=== PATIENT | female | born 1950 | race African-American/Black ===

== ENCOUNTER 2018-12-03 09:03 | Outpatient (CLI) | payer MEDICARE, MEDICAID ==
--- NOTE | 2018-12-06 09:38 | RAD ---
XR Ba Swallow W/Speech Therap History: [Dysphagia, unspecified R13.10. Feeding difficulties R63.3.] Comparison: None. Findings: Multiple consistency of contrast was given to the patient via the speech pathologist. The r adiologist was not present. Impression: Fluoroscopy for the speech pathologist. Please see the report for details of the exam.
== END 2018-12-03 09:04 | disposition home or self-care (01) ==
PROVIDERS: ATTEND Family Medicine
DX: R13.10 Dysphagia, unspecified (principal); R63.3 Feeding difficulties
CPT/HCPCS: 74230

== ENCOUNTER 2019-11-03 13:46 | Observation (INO) | payer MEDICARE, MEDICAID ==
--- NOTE | 2019-11-03 14:33 | PDOC.FPRHP ---
- History of Present Illness Chief Complaint: face numbess, R hand weakness History of Present Illness: This patient is a 68-yo F who presents as transfer from [place] ED for TIA vs CVA rule out. Patient reports symptoms of R facial numbness, R hand numbness, and R hand weakness/clumsiness/dropping objects starting yesterday morning. These symptoms improved. She then felt lightheaded and dizzy, as if she were going to pass out later that evening. Denies the feeling of the room spinning around her. She again noted similar symptoms of lightheadedness and R hand weakness this morning, so she presented to ED. Had headache earlier today which resolved w/ aspirin. Takes aspirin 81 at home daily. Hx of TIA in the past. Denies cardiac history. ED Course: In [place] received aspirin. CT of head negative for acute bleed. - Allergies/Adverse Reactions Allergies Allergy/AdvReac Type Severity Reaction Status Date / Time acetaminophen [From Tylenol] Allergy Rash Verified 11/03/19 16:45 codeine Allergy Rash Verified 11/03/19 16:45 meperidine [From Demerol] Allergy Rash Verified 11/03/19 16:45 - Home Medications Medication Instructions Recorded Confirmed Type Aspirin [Ecotrin Low Strength] 81 mg PO DAILY 11/03/19 11/03/19 History Atorvastatin Calcium 40 mg PO DAILY 11/03/19 11/03/19 History Candesartan Cilexetil 16 mg PO DAILY 11/03/19 11/03/19 History Famotidine 20 mg PO DAILY 11/03/19 11/03/19 History Hydrochlorothiazide 25 mg PO DAILY 11/03/19 11/03/19 History Metoprolol Tartrate [Lopressor] 25 mg PO BID 11/03/19 11/03/19 History Pantoprazole Sodium 40 mg PO BID 11/03/19 11/03/19 History - History PMHx: HTN, Hx of TIA, GERD, HLD PSHx: , HYSTERECTOMY, LEFT KNEE REPLACEMENT FHx: - Father: of [place] age 80 - Denies FHx of sudden head bleeds, sudden . Social: - Denies smoking, drinking alcohol, drugs. - Review of Systems General: denies: fever/chills Eyes: denies: vision changes ENT: denies: nasal congestion Respiratory: denies: cough, shortness of breath Cardiovascular: denies: chest pain, palpitation, edema Gastrointestinal: reports: nausea. denies: vomiting, diarrhea, abdominal pain Genitourinary: denies: dysuria Skin: denies: rashes Musculoskeletal: denies: swelling Neurological: reports: weakness. denies: syncope, seizure Psychological: denies: anxiety, depression - Vital signs BP: 146/61, MAP: 86, Pulse: 57, Resp: 17, Temp: 98.4 (Oral), Pain: 0, O2 sat: 97 on (Room Air), Time: 11/03/2019 13:54. Weight: 100 kg - Physical Exam Constitutional: NAD, awake, alert and oriented HEENT: normocephalic and atraumatic, PERRLA, EOMI, conjunctiva clear, no scleral icterus, grossly normal vision, grossly normal hearing, normal nasal mucosa, MMM, oropharynx clear Neck: supple, trachea midline, no LAD Heart: RRR, normal S1/S2, no murmurs/rubs/gallops Lungs: CTAB, no respiratory distress Abdomen: soft, non-tender, bowel sounds present Musculoskeletal: normal structure, normal tone, ROM grossly normal Neurological: no focal deficit, CN II-XII intact -Neurological: Cranial nerves intact EXCEPT for persistent numbness over V2-V3 over Left face HINTs exam negative for signs of posterior stroke. Skin: no rash/lesions, no jaundice Heme/Lymphatic: no unusual bruising or bleeding, no petechia Psychiatric: normal mood and affect, good judgment and insight, intact recent and remote memory FMR H&P: Results - EKG Interpretation EKG: NSR FMR H&P: A/P - Problem List (1) TIA (transient ischemic attack) Current Visit: Yes Status: Acute Code(s): G45.9 - TRANSIENT CEREBRAL ISCHEMIC ATTACK, UNSPECIFIED (2) HTN (hypertension) Current Visit: Yes Status: Acute Code(s): I10 - ESSENTIAL (PRIMARY) HYPERTENSION - Plan TIA - improved w/ minimal L facial numbness which spares forehead - MRI in AM - TSH, FLP, Magnesium, Phosphorus, A1C in the AM - pending MRI results, may consider further imaging of carotid arteries by sono , CT or MRI. - Aspirin 325 in AM - statin this evening HTN - allow permissive HTN for 24 hours up to 220/110 - continue anti-HTN medications after this window. GERD - continue symptomatic treatment Code: Full Fluids: oral VTE ppx: LVX GI ppx: none Disposition/LOS: stroke obs. LOS < 48H pending imaging results. FMR H&P: Upper Level - Plan Date/Time: 11/03/19 1433 IAlexander DO, have evaluated this patient and agree with findings/plan as outlined by sports broadcasting internship resident. Pertinent changes/additions are listed here. HPI Ms. Baker is a 68 yo F w/ a pmhx sig for htn presenting to outside ED for disequilibrium and sensory changes She reports yesterday while standing the room began spinning, she also began dropping things and having a numb sensation on her left side. Both of which resolved and then returned this morning and since have completely resolved. She has not had anything like this before and currently denies dizziness, presyncope , weakness, or sensory changes. No recent illness, taking meds as prescribed. PE General: NAD HEENT: NCAT Chest: even inspiratory and expiratory effort, no retractions Abdomen: non distended, NTTP MSK: no weakness, or loss of ROM noted Extremities: non-edematous, pulses present Neuro: CN II-XII intact, strength 5/5, sensory abnormality localized to L face, sparing forehead See sports broadcasting internship portion for full ROS, PE, labs and vitals. A/P TIA - CT brain at outside ED neg for bleed, EKG wnl - risk stratification, MRI, Echo - increase asa dose - npo pending BSS - appropriate consults pending further imaging results see sports broadcasting internship note for mgmt of chronic disease Dispo: admit to stroke for further eval of TIA Addendum - Attending - Attending Attestation Date/Time: 11/03/19 1640 I personally evaluated the patient and discussed the management with Dr. Morel /Ronald. I agree with the History, Examination, Assessment and Plan documented above with any addition or exceptions noted below. Patient with history of previous TIA here with acute focal neurological complaints that resolved yesterday but recurred this morning. She is currently back to baseline. Exam is overall normal. Patient will be placed on stroke obs, obtain MRI, escalate ASA therapy, therapy services, and risk stratify. Further mgmt pending MRI result.
[2019-11-03] MEDS ORDERED: Ondansetron PF 4 MG/2 ML Vial IVP PRN (15:04)
[2019-11-03] MEDS ORDERED: Acetaminophen 325 MG TAB PO PRN ×2 (15:04→18:05)
[2019-11-03] MEDS ORDERED: Ondansetron ODT 4 MG TAB PO PRN (15:04)
[2019-11-03] MEDS ORDERED: Labetalol HCl 100 MG/20 ML VIAL SLOW IVP PRN (15:04)
[2019-11-03] MEDS ORDERED: Enoxaparin Sodium 40 MG/0.4 ML SYRINGE SC SCH (15:30)
[2019-11-03] MEDS ORDERED: Potassium Chloride 20 MEQ TAB PO SCH (15:45)
[2019-11-03 16:30] LABS: PTT 30.3 SEC (22.9-36.1); Prothrombin Time 12.9 SEC (12.0-14.7)
[2019-11-03 16:31] VITALS: BMI 39.2
[2019-11-03] MEDS ORDERED: Famotidine 20 MG TAB PO SCH (21:00)
[2019-11-03] MEDS ORDERED: FLU VACC TS2019-20(65YR UP)/PF 180 MCG/0.5 ML SYRINGE IM ONE (21:00)
[2019-11-03] MEDS ORDERED: Atorvastatin Calcium 40 MG TAB PO SCH (21:00)
[2019-11-04 04:51] LABS: #Basophils 0.1 thou/uL (0.0-0.2); #Eosinphils 0.3 thou/uL (0.0-0.7); #Lymphocytes 2.4 thou/uL (1.20-3.40); #Monocytes 0.6 thou/uL (0.11-0.59); #Neutrophils 5.7 thou/uL (1.40-6.50); %Basophils 0.5 % (0.0-1.0); %Eosinophils 3.2 % (0.0-10.0); %Lymphocytes 26.6 % (21.0-51.0); %Monocytes 6.7 % (0.0-10.0); Mean Corpuscular HGB CONC 33.8 g/dL (32.0-36.0); Mean Corpuscular Hemoglobin 29.3 pg (27.0-31.0); Mean Corpuscular Volume 86.8 fL (78.0-98.0); Mean Platelet Volume 10.3 fL (7.4-10.4); Platelet Count 200 thou/uL (130-400); RBC Distribution Width 19.4 % (11.5-14.5); Red Blood Cell (RBC) Count 3.74 mill/uL (4.20-5.40); White Blood Cell (WBC) Count 9.1 thou/uL (4.8-10.8)
[2019-11-04 04:57] LABS: Hemoglobin A1c 5.7 % (4.0-6.0)
[2019-11-04 05:11] LABS: Anion Gap 10 mmol/L (10-20); BUN (Urea Nitrogen) 13 mg/dL (9.8-20.1); Calc. Creatinine Clearance 105 mL/min (70-130); Calcium 9.1 mg/dL (7.8-10.44); Carbon Dioxide 29 mmol/L (23-31); Cardiac Risk 2.5 (Less than 4.5); Chloride 103 mmol/L (98-107); Cholesterol 76 mg/dl (< 200 Desired); Estimated GFR-MDRD 84; Glucose 123 mg/dL (80-115); HDL Cholesterol 30 mg/dL (>60 Neg Risk); LDL Cholesterol, Calculated 31 mg/dL; Magnesium 1.7 mg/dL (1.6-2.6); Phosphorus 3.2 mg/dL (2.3-4.7); Potassium 3.4 mmol/L (3.5-5.1); Sodium 139 mmol/L (136-145); Triglycerides 76 mg/dL (Less than 150)
--- NOTE | 2019-11-04 05:33 | PDOC.FM ---
- Subjective Subjective: Pt states her dizziness has completely resolved, denies dizziness upon standing or with movement. Has tolerated walking to the bathroom several times overnight. Denies any further numbness or weakness. Tele monitoring: sinus jailyn, [address] depressions 50-60 rate. - Objective MAR Reviewed: Yes Vital Signs & Weight: Vital Signs (12 hours) Temp Pulse Resp BP Pulse Ox 11/04/19 03:45 98.1 F 67 18 128/44 L 97 11/03/19 23:35 98 F 60 18 114/53 L 98 11/03/19 19:58 98 F 56 L 18 127/58 L 98 11/03/19 19:55 98 F 56 L 18 127/58 L 98 Weight Weight 100.244 kg Result Diagrams: 11/04/19 04:25 11/04/19 04:25 Phys Exam - Physical Examination Constitutional: NAD HEENT: moist MMs, sclera anicteric Neck: no nodes, no JVD Respiratory: no wheezing, no rales, no rhonchi, clear to auscultation bilateral Cardiovascular: RRR, no significant murmur, no rub Gastrointestinal: soft, non-tender, positive bowel sounds Musculoskeletal: no edema, pulses present Neurological: non-focal, normal sensation, moves all 4 limbs CN II-VII intact Psychiatric: normal affect, A&O x 3 Skin: no rash, normal turgor, cap refill <2 seconds Dx/Plan (1) HTN (hypertension) Code(s): I10 - ESSENTIAL (PRIMARY) HYPERTENSION Status: Acute (2) TIA (transient ischemic attack) Code(s): G45.9 - TRANSIENT CEREBRAL ISCHEMIC ATTACK, UNSPECIFIED Status: Acute - Plan Plan: TIA - improved w/ no residual dizziness or weakness/sensation loss. - MRI pending this morning - TSH 1.28, FLP within normal limits, Magnesium 1.7, Phosphorus 3.2, A1C 5.7% - pending MRI results, may consider further imaging of carotid arteries by sono , CT or MRI. - Aspirin 325 mg daily - statin daily HTN - allow permissive HTN 48 hr, Pt's BP have been lower, but stable overnight. - continue anti-HTN medications after this window GERD - continue symptomatic treatment Code: Full Fluids: oral VTE ppx: LVX GI ppx: none Disposition/LOS: stroke obs. LOS < 48H pending imaging results. Addendum - Attending - Attending Attestation Date/Time: 11/04/19 8106 I personally evaluated the patient and discussed the management with Dr. Luke. I agree with the History, Examination, Assessment and Plan documented above with any addition or exceptions noted below. Patient back to baseline. She will have MRI today and d/c if normal.
[2019-11-04] MEDS ORDERED: Potassium Chloride 20 MEQ TAB PO SCH ×2 (05:45→09:00)
[2019-11-04] MEDS ORDERED: Magnesium Oxide 400 MG TAB PO SCH (09:00)
[2019-11-04] MEDS ORDERED: Clopidogrel Bisulfate 75 MG TAB PO SCH (09:00)
[2019-11-04] MEDS ORDERED: Famotidine 20 MG TAB PO SCH (09:00)
[2019-11-04] MEDS ORDERED: Aspirin 325 mg Enteric Coated Tablet PO SCH (09:00)
[2019-11-04] MEDS ORDERED: Enoxaparin Sodium 40 MG/0.4 ML SYRINGE SC SCH (09:00)
--- NOTE | 2019-11-04 09:38 | MRI ---
BRAIN MRI WITHOUT CONTRAST: HISTORY: Transient ischemic attack. COMPARISON: None. FINDINGS: No hemorrhage on the axial gradient echo sequence. Calvarium has a normal T1 marrow signal intensity. Midline brain parenchymal structures are unremark able. No parenchymal mass, mass effect, or midline shift. Tigre volume, age appropriate. Cortical chavez-white matter differentiation is preserved. No hydrocephalus. Central arterial flow voids are maintained. Absent restricted diffusion. Adequate aeration of the paranasal sinuses and mastoid air cells. T2 and FLAIR white matter hyperintensities, predominantly periventricular distribution, are nonspecif ic. IMPRESSION: 1. No evidence of restricted diffusion or infarct. 2. White matter T2 and FLAIR hyperintensities are nonspecific but may be due to chronic small-vessel ischemic changes of the white matter. Some of these white matter hyperintensities have a somewhat p erpendicular distribution with respect to the ventricular system. Correlate for demyelinating diseas e such as multiple sclerosis. POS: [facility]
--- NOTE | 2019-11-04 09:55 | ULT ---
US Carotid Doppler STANDARD History: Transient ischemic attack Comparison: None. Findings: Real-time grayscale, color, and spectral analysis of the extracranial carotid and vertebral arteries was performed. No elevated peak systolic velocities within the internal carotid arteries. Antegrade flow both verteb ral arteries. Minimal atherosclerotic plaque. Impression: No hemodynamically significant stenosis.
[2019-11-04 11:41] VITALS: BP 136/57; TEMP 98
--- NOTE | 2019-11-04 15:10 | DIS ---
DATE OF ADMISSION: 11/03/2019 DATE OF DISCHARGE: 11/04/2019 ADMITTING ATTENDING: Edwar Ramirez MD DISCHARGE ATTENDING: Edwar aRmirez MD CONSULTS: None. PROCEDURES: MRI brain, which showed T2 white matter in FLAIR hyperintensities along the ventricles, which were nonspecific or suggestive of chronic ischemic white matter changes. Also showed no acute ischemia or infarcts. Carotid Dopplers bilaterally showed no hemodynamic significant stenosis. Echocardiogram, which result is tending. DIAGNOSES: 1. Transient ischemic attack. 2. Hypertension. 3. Gastroesophageal reflux disease. DISCHARGE MEDICATIONS: 1. Plavix 75 mg p.o. daily for 90 days. 2. Atorvastatin 40 mg p.o. daily. 3. Pantoprazole 40 mg p.o. b.i.d. 4. Candesartan 16 mg p.o. daily. 5. Hydrochlorothiazide 25 mg p.o. daily. 6. Metoprolol 25 mg p.o. b.i.d. DISCONTINUED MEDICATIONS: Aspirin 81 mg daily. HISTORY OF PRESENT ILLNESS/HOSPITAL COURSE: Ms. Baker is a 68-year-old female with a history of hypertension and GERD, coming into the emergency department because of right-sided weakness and numbness to the right upper extremity, also left-sided facial paresthesias as well as dizziness. The patient was given aspirin and statin in the emergency department. Her CT head showed no acute finding. A1c was 5.7. Fasting lipid panel; triglycerides 76, LDL 31, HDL 30, and total cholesterol 76. TSH 1.28. The patient's magnesium and phosphorus were 1.7 and 3.2, magnesium was replaced. Potassium was slightly low at 3.4, which was also replaced. The patient's blood pressure medications were held to allow for permissive hypertension, although the patient's blood pressure remained stable and not elevated during her hospital stay. I monitored here all her blood pressure medications. The patient had a carotid Doppler, which showed no significant hemodynamic stenosis and an MRI, which showed T2 white matter FLAIR hyperintensities along with ventricles either suggestive of MS or more than likely chronic ischemic white matter changes due to small vessel ischemia as the patient did not present clinically in MS. ABCD2 score of 5 and the patient was started on Plavix monotherapy for 90 days. The patient's aspirin was discontinued. DISPOSITION: Stable upon discharge with symptoms completely resolved. No dizziness, weakness, or paresthesias. DISCHARGE INSTRUCTIONS: 1. Location: To home. 2. Diet: Heart healthy. 3. Activity: As tolerated. 4. Followup: Follow up with primary care physician, Dr. Dunlap at [facility] in 1 weeks time. At this visit, please discuss future referral to Neurology due to MRI changes. Job ID: [id number]
[2019-11-04] MEDS ORDERED: Atorvastatin Calcium 40 MG TAB PO SCH (21:00)
== END 2019-11-04 14:41 | disposition home or self-care (01) ==
LOC: ERS 13:46 → 2SE 14:25
PROVIDERS: ADMIT Student in an Organized Health Care Education/Training Program; ATTEND Student in an Organized Health Care Education/Training Program
DX: G45.9 Transient cerebral ischemic attack, unspecified (principal); I10 Essential (primary) hypertension; K21.9 Gastro-esophageal reflux disease without esophagitis; E78.5 Hyperlipidemia, unspecified; Z79.02 Long term (current) use of antithrombotics/antiplatelets; Z79.899 Other long term (current) drug therapy; Z79.82 Long term (current) use of aspirin; Z88.5 Allergy status to narcotic agent
CPT/HCPCS: 70551; 80048; 80061; 83036; 83735; 84100; 84443; 85025; 85610; 85730; 93306; 93880; 96372; 99285; G0378 ×3; 36415; J1650

== ENCOUNTER 2020-01-28 11:44 | Outpatient (CLI) | payer MEDICARE, OTHER ==
--- NOTE | 2020-02-10 14:23 | MMO ---
Bilateral MAMMO Bilat Screen [facility]. CLINICAL HISTORY: Patient is 69 years old and is seen for screening. The patient has no family history of breast cancer. The patient has no personal history of cancer. VIEWS: The views performed were: bilateral craniocaudal with tomosynthesis and bilateral mediolateral oblique with tomosynthesis. FILMS COMPARED: The present examination has been compared to prior imaging studies performed at [facility] on 05/11/2015, 05/13/2016, 07/12/2017 and 09/06/2018. This study has been interpreted with the assistance of computer-aided detection. MAMMOGRAM FINDINGS: The breasts are heterogeneously dense, which could obscure a lesion on mammography. There are stable benign appearing calcifications seen in both breasts. There are also vascular calcifications. There are no suspicious masses, suspicious calcifications, or new areas of architectural distortion. IMPRESSION: THERE IS NO MAMMOGRAPHIC EVIDENCE OF MALIGNANCY. A ROUTINE FOLLOW-UP MAMMOGRAM IN 1 YEAR IS RECOMMENDED. THE RESULTS OF THIS EXAM WERE SENT TO THE PATIENT. ACR BI-RADS Category 2 - Benign finding MAMMOGRAPHY NOTE: 1. A negative mammogram report should not delay a biopsy if a dominant of clinically suspicious mass is present. 2. Approximately 10% to 15% of breast cancers are not detected by mammography. 3. Adenosis and dense breasts may obscure an underlying neoplasm. Reported by: ARTEMIO HUSAIN MD Electonically Signed: [id number]
== END 2020-01-28 11:45 | disposition home or self-care (01) ==
LOC: BICMAMMO 11:44
PROVIDERS: ATTEND Internal Medicine Hospice and Palliative Medicine
DX: Z12.31 Encounter for screening mammogram for malignant neoplasm of breast (principal)
CPT/HCPCS: 77063; 77067

== ENCOUNTER 2020-06-27 20:03 | Observation (INO) | payer MEDICARE, MEDICAID ==
[~2020-06-27 20:03] MED LIST: Iopamidol-370 76% 500 ML 1 ML ONE
--- NOTE | 2020-06-27 20:31 | RAD ---
Chest AP view INDICATION: Shortness of breath and chest pressure COMPARISON: Chest 2 views dated January 22, 2019 FINDINGS: Lungs: The lungs are clear Cardiac silhouette: The cardiomediastinal silhouette appears within normal limits. Pulmonary vasculature: Normal Pleural spaces: No pleural effusion or pneumothorax is demonstrated. Upper abdomen: No abnormality seen. Osseous structures: No acute osseous abnormality. Additional findings: None. IMPRESSION: No acute cardiopulmonary abnormality.
[2020-06-27 20:52] LABS: #Eosinphils 0.2 thou/uL (0.0-0.7); #Lymphocytes 2.4 thou/uL (1.20-3.40); #Monocytes 0.8 thou/uL (0.11-0.59); #Neutrophils 7.8 thou/uL (1.40-6.50); %Basophils 0.4 % (0.0-1.0); %Eosinophils 1.8 % (0.0-10.0); %Lymphocytes 21.7 % (21.0-51.0); %Monocytes 6.7 % (0.0-10.0); %Neutrophils 69.5 % (42.0-75.0); Hemoglobin 12.7 g/dL (12.0-16.0); Mean Corpuscular HGB CONC 32.4 g/dL (32.0-36.0); Mean Corpuscular Hemoglobin 27.7 pg (27.0-31.0); Mean Corpuscular Volume 85.5 fL (78.0-98.0); Mean Platelet Volume 11.8 fL (7.4-10.4); Platelet Count 216 thou/uL (130-400); RBC Distribution Width 19.5 % (11.5-14.5); Red Blood Cell (RBC) Count 4.58 mill/uL (4.20-5.40); White Blood Cell (WBC) Count 11.2 thou/uL (4.8-10.8)
[2020-06-27] MEDS ORDERED: Nitroglycerin 2% Ointment 1 INCH/1 GM Packet ONE (20:56)
[2020-06-27] MEDS ORDERED: Aspirin Chewable 81 MG TAB ONE ×2 (20:56→20:59)
[2020-06-27 21:07] LABS: ALT (SGPT) 31 U/L (8-55); AST (SGOT) 26 U/L (5-34); Albumin 3.7 g/dL (3.4-4.8); Alkaline Phosphatase 108 U/L (40-110); Anion Gap 14 mmol/L (10-20); BUN (Urea Nitrogen) 14 mg/dL (9.8-20.1); Bilirubin, Total 0.4 mg/dL (0.2-1.2); CK (CPK) 97 U/L (29-168); Calc. Creatinine Clearance 0 mL/min (70-130); Calcium 9.2 mg/dL (7.8-10.44); Carbon Dioxide 24 mmol/L (23-31); Chloride 107 mmol/L (98-107); Estimated GFR-MDRD 88; Glucose 93 mg/dL (80-115); Potassium 3.7 mmol/L (3.5-5.1); Protein, Total 7.7 g/dL (6.0-8.3); Sodium 141 mmol/L (136-145)
--- NOTE | 2020-06-27 21:50 | CT ---
CTA Angio Chest W WO Con 06/27/2020 9:30 PM Indication: Shortness of breath Technique: Multiple CTA images were obtained of the thorax with IV contrast. 3-D rendering: MIP didi nstructed images were created and reviewed. Comparison: CTA aortic dissection protocol dated August 19, 2018 Findings: Pulmonary arteries: No central or segmental pulmonary embolus is evident. Heart and Aorta: Normal appearing. Mediastinum:Small hiatal hernia. No definite enlarged lymph nodes. Lungs:Subsegmental volume loss involving both lung bases. Pleural space: Clear. Upper Abdomen: No acute abnormality. Osseous Structures: No acute fracture or subluxation demonstrated. There is scattered degenerative a nd osteoarthritic change present. Soft tissues:No abnormality. Other findings:None. Impression: No central or segmental pulmonary embolus.
--- NOTE | 2020-06-27 22:05 | PDOC.FPRHP ---
- History of Present Illness Chief Complaint: chest pain, SOB History of Present Illness: Reports pressure like chest pain over the last 2 days that has been constant. No radiation. States pain "worse she ever had." 06/06 pain, noting it felt like a pressure- like. States it is not associated with exertion. Reports swelling in her lower extremities. Denies SOB. States when she tried to eat in the ER she felt like the food was stuck in her chest and had pain. Denies fever, chills, VD, cough, congestion. Denies sick contacts. Endorses nausea. Denies changes in smell or taste. Reports she feels her throat is swollen and reports pain. She was started on a new medication for her arthritis called celebrex. She thinks t hat her symptoms started with starting this medication. She has been on this medication for 4 days. She does have diverticulitis, but no known history of PUD. Reports hx of GERD, on PPI for this. States this pain is worse. Nitro in the ER did help the pain. Exertion did not worsen the pain. Reports sweating yesterday. ED Course: Nitro, ASA - Allergies/Adverse Reactions Allergies Allergy/AdvReac Type Severity Reaction Status Date / Time acetaminophen [From Tylenol] Allergy Rash Verified 11/03/19 16:45 codeine Allergy Rash Verified 11/03/19 16:45 meperidine [From Demerol] Allergy Rash Verified 11/03/19 16:45 - Home Medications Medication Instructions Recorded Confirmed Type Atorvastatin Calcium 40 mg PO DAILY 11/03/19 11/03/19 History Candesartan Cilexetil 16 mg PO DAILY 11/03/19 11/03/19 History Hydrochlorothiazide 25 mg PO DAILY 11/03/19 11/03/19 History Metoprolol Tartrate [Lopressor] 25 mg PO BID 11/03/19 11/03/19 History Pantoprazole Sodium 40 mg PO BID 11/03/19 11/03/19 History Clopidogrel Bisulfate [Plavix] 75 mg PO DAILY #90 tab 11/04/19 Rx - History PMHx: HTN, GERD, TIA x 2 last one in 11/14, HLD PSHx: C section, hysterectomy, L knee replacement FHx: noncontributory Social: denies drug, alcohol or tobacco use - Review of Systems General: denies: fever/chills, weight/appetite/sleep changes Eyes: denies: eye pain, vision changes ENT: denies: nasal congestion, rhinorrhea Respiratory: denies: cough, congestion, shortness of breath Cardiovascular: reports: chest pain, edema. denies: palpitation Gastrointestinal: reports: nausea. denies: vomiting, diarrhea, constipation, abdominal pain Genitourinary: denies: incontinence, dysuria Skin: denies: rashes, lesions Musculoskeletal: denies: pain, tenderness Neurological: denies: numbness, syncope, weakness - Vital signs BP: 128/55, Pulse: 70, Resp: 18, Pain: 5, O2 sat: 98 on (Room Air), Time: 06/27/2020 22:08 Weight 100kg BP: 194/71, Pulse: 69, Resp: 20, Temp: 98.1 (Oral), Pain: 10, O2 sat: 98 on (Room Air), Time: 06/27/2020 20:04. - Physical Exam Constitutional: NAD, awake, alert and oriented HEENT: normocephalic and atraumatic, PERRLA, EOMI, MMM Neck: supple, trachea midline Chest: other (TTP of the chest wall) Heart: RRR, normal S1/S2, no murmurs/rubs/gallops, other (+ mild JVD, 1+ pitting edema) Lungs: CTAB, no wheezing Abdomen: soft, non-tender Musculoskeletal: normal structure, normal tone Neurological: no focal deficit Skin: no rash/lesions, good turgor Heme/Lymphatic: no unusual bruising or bleeding, no purpura Psychiatric: normal mood and affect, good judgment and insight, intact recent and remote memory FMR H&P: Results - Labs Result Diagrams: 06/27/20 20:34 06/27/20 20:34 Lab results: WBC 11.2 thou/uL (4.8-10.8) H 06/27/20 20:34 Hgb 12.7 g/dL (12.0-16.0) 06/27/20 20:34 Hct 39.2 % (36.0-47.0) 06/27/20 20:34 MCV 85.5 fL (78.0-98.0) 06/27/20 20:34 Plt Count 216 thou/uL (130-400) 06/27/20 20:34 Neutrophils % 69.5 % (42.0-75.0) 06/27/20 20:34 Sodium 141 mmol/L (136-145) 06/27/20 20:34 Potassium 3.7 mmol/L (3.5-5.1) 06/27/20 20:34 Chloride 107 mmol/L (98-107) 06/27/20 20:34 Carbon Dioxide 24 mmol/L (23-31) 06/27/20 20:34 BUN 14 mg/dL (9.8-20.1) 06/27/20 20:34 Creatinine 0.79 mg/dL (0.6-1.1) 06/27/20 20:34 Glucose 93 mg/dL (80-115) 06/27/20 20:34 Calcium 9.2 mg/dL (7.8-10.44) 06/27/20 20:34 Total Bilirubin 0.4 mg/dL (0.2-1.2) 06/27/20 20:34 AST 26 U/L (5-34) 06/27/20 20:34 ALT 31 U/L (8-55) 06/27/20 20:34 Alkaline Phosphatase 108 U/L (40-110) 06/27/20 20:34 Creatine Kinase 97 U/L (29-168) 06/27/20 20:34 B-Natriuretic Peptide 16.5 pg/mL (0-100) 06/27/20 20:34 Serum Total Protein 7.7 g/dL (6.0-8.3) 06/27/20 20:34 Albumin 3.7 g/dL (3.4-4.8) 06/27/20 20:34 - EKG Interpretation EKG: NSR - Radiology Interpretation CT scan - chest Status: report reviewed by me (No pulmonary embolism) FMR H&P: A/P - Plan Atypical Chest Pain likely 2/2 GERD, r/o ACS Differential includess: dysphagia vs MSK vs peptic ulcer EKG: NSR, Initial trop indetermine DD: 2.45 , CTA chest negative for PE - will trend troponin x 3 - NPO for stress test in the am - aspirin and nitro patch given, improved pain - f/u with minister outpatient - will start famotidine BID - will hold celebrex - consider barium swallow if patient continues to have dysphagia - continue to monitor vitals - monitor on tele HFpEF Echo from October showed normal EF with diastolic dysfunction BNP 16 - consider repeat echo - will give 20mg IV lasix due to LE edema Hx of TIA x 2 (last 09/2019) - sees neurologist - not on anticoagulation HTN - continue home meds Dispo: tele/obs Code: Full MPOA: Son PCP: Juliana Case to be discussed with Dr. Ramirez FMR H&P: Upper Level - Plan Date/Time: 06/27/202204 I, Cathi Angelo MD, have evaluated this patient and agree with findings/plan as outlined by internal medicine nurse practitioner resident. Pertinent changes/additions are listed here. This is a 69yo F here with PMH of HTN, GERD, TIA x 2, HLD who presents with CC of chest pain. She reports the pain has been constant over the last 2 days, pressure-like, non radiating. Pain 10/10 at its worse. Reports increased sweating yesterday. Was relieved with nitro in the ER. Was NOT exacerbated with exertion. Patient was started on celebrex 4 days ago and she believes this was the start of her chest pain. She also endorses LE swelling worse than normal. She denies any abd pain, vomiting diarrhea, fever, chills, urinary complaints. Does report some nausea. Reports decreased appetite. She does have a hx of GERD but she states this pain is worse. When she tried to eat in the ER she reports the feeling of food getting stuck in her chest and reproducible pain. No sick contacts. In the ER, patient was given ASA and nitro. Her VS were stable in the ER. ON exam, she did have 1+ pitting edema in b/l LE, RRR, no murmur, no TTP of chest mild JVD appreciated, lung sounds clear, axox3. Will admit patient to tele, obs for atypical chest pain. Chest pain more likely 2/2 GERD. BNP 16. Will give 20mg IV lasix due to LE edema on exam. Will trend trops. Will make NPO and put in for stress test in the AM. Echo from October 2019 showed normal EF with diastolic dysfunction. Can consider repeat, but unlikley to change over. Can also consider barium swallow if patient continues to have dysphagia. Patient needs to f/u with minister outpatient. Continue pain meds for chronic conditions. Dispo: admit to tele, obs PCP: Juliana Code:FULL Case to be discussed with Dr. Ramirez. See internal medicine nurse practitioner note for full history. Addendum - Attending - Attending Attestation Date/Time: 06/28/20 3315 I personally evaluated the patient and discussed the management with Dr. Smith/Petey. I agree with the History, Examination, Assessment and Plan documented above with any addition or exceptions noted below.
[2020-06-28] LABS: Troponin I 0.014 ng/mL (< 0.028)
[2020-06-28] MEDS ORDERED: Ondansetron PF 4 MG/2 ML Vial IVP PRN (01:15)
[2020-06-28] MEDS ORDERED: Ondansetron ODT 4 MG TAB SL PRN (01:15)
[2020-06-28] MEDS ORDERED: Lactated Ringer's 1,000 ML IV SCH (02:00)
[2020-06-28] MEDS ORDERED: Furosemide 20 MG/2 ML VIAL SLOW IVP SCH (02:00)
[2020-06-28] MEDS ORDERED: Nitroglycerin 0.4 MG TAB (25 Tab Bottle) SL PRN (02:10)
[2020-06-28] MEDS ORDERED: Furosemide 20 MG/2 ML VIAL ONE (02:44)
[2020-06-28 03:41] LABS: Troponin I 0.015 ng/mL (< 0.028)
--- NOTE | 2020-06-28 05:37 | PDOC.FM ---
- Subjective Subjective: Only complaint this AM is back discomfort from sleeping in ER overnight. Denies chest pain at this time, does endorse epigastric discomfort. Currently NPO for Stress. - Objective MAR Reviewed: Yes Result Diagrams: 06/27/20 20:34 06/27/20 20:34 Phys Exam - Physical Examination Constitutional: NAD HEENT: moist MMs Neck: supple Respiratory: no wheezing, clear to auscultation bilateral Cardiovascular: RRR, no significant murmur Gastrointestinal: soft Musculoskeletal: no edema Neurological: moves all 4 limbs Psychiatric: normal affect, A&O x 3 Dx/Plan - Plan Plan: Atypical Chest Pain likely 2/2 GERD - EKG no signs of acute ischemia. Trops neg x3 - Elevated D-dimer, CTA chest negative for PE - Daily ASA, NPO for stress test today - Continue home Protonix. Holding Celebrex. Dysphagia - Consider barium swallow HFpEF - Echo 10/2019: normal EF with diastolic dysfunction - s/p 20mg IV lasix due to LE edema Hx of TIA x 2 (last 09/2019) - sees neurologist - not on anticoagulation HTN - Continue home meds Addendum - Attending - Attending Attestation Date/Time: 06/28/20 [id number] I personally evaluated the patient and discussed the management with Dr. Varma. I agree with the History, Examination, Assessment and Plan documented above with any addition or exceptions noted below.
[2020-06-28] MEDS ORDERED: Enoxaparin Sodium 40 MG/0.4 ML SYRINGE SC SCH (09:00)
[2020-06-28] MEDS ORDERED: Atorvastatin Calcium 40 MG TAB PO SCH (09:00)
[2020-06-28] MEDS ORDERED: Clopidogrel Bisulfate 75 MG TAB PO SCH (09:00)
[2020-06-28] MEDS ORDERED: Famotidine 20 MG TAB PO SCH (09:00)
[2020-06-28] MEDS ORDERED: Aspirin Chewable 81 MG TAB PO SCH (09:00)
--- NOTE | 2020-06-28 13:11 | NM ---
Stress only myocardial perfusion scan: 06/28/2020 HISTORY: Chest pain with hypertension and dyslipidemia TECHNIQUE: SPECT imaging of the left ventricular myocardium obtained during stress following the intr avenous administration of 27.2 mCi technetium 99m labeled sestamibi FINDINGS: No myocardial perfusion defect is seen. Cardiac wall motion appears normal. Left ventricula r ejection fraction is estimated at 70% with an EDV of 63 mL and an ESV of 19 mL IMPRESSION: Unremarkable stress only myocardial perfusion scan.
[2020-06-28] MEDS ORDERED: ADENOSINE 60 MG/20 ML VIAL ONE (14:06)
--- NOTE | 2020-06-29 03:19 | DIS ---
DATE OF ADMISSION: 06/27/2020 DATE OF DISCHARGE: 06/28/2020 RESIDENT: Henny Varma, PGY-3. ADMITTING ATTENDING: Edwar Ramirez MD DISCHARGE ATTENDING: Edwar Ramirez MD PRIMARY DIAGNOSIS: Atypical chest pain. SECONDARY DIAGNOSES: 1. Dysphagia. 2. Heart failure with preserved ejection fraction. 3. History of transient ischemic attack x2. 4. Hypertension. DISCHARGE MEDICATIONS: 1. Atorvastatin 40 mg daily. 2. Plavix 75 mg daily. 3. HCTZ 25 mg daily. 4. Protonix 40 mg b.i.d. 5. Candesartan cilexetil 16 mg daily. 6. Metoprolol 25 mg b.i.d. 7. Sucralfate 1 g p.o. with meals. CONSULTS: None. DISCONTINUED MEDICATIONS: None. PROCEDURES: 1. Chest x-ray on 06/27/2020, no acute cardiopulmonary abnormality. 2. Chest CTA 06/27/2020, no central or segmental pulmonary embolism. 3. Nuclear stress test 06/28/2020. Unremarkable stress only. 4. Myocardial perfusion scan. HISTORY OF PRESENT ILLNESS/HOSPITAL COURSE: Ms. Baker is a 69-year-old female who was brought in for pressure-like chest pain for the last 2 days that was constant with no radiation, nonexertional, also reported swelling. She has a history of GERD that she takes a PPI for. The nitroglycerin in the ER did help with the pain. She also received aspirin. Vital signs were stable at admission. Her troponins were negative x3. EKG showed no signs of acute ischemia. She did have an elevated D-dimer at 2.45; therefore CTA was obtained, which was negative for PE. Stress test was performed, which has showed no reversible ischemia. On further evaluation, her pain was most likely due to GERD related or peptic ulcer related cause. We held her Celebrex and continued her on her home Protonix with the addition of sucralfate with meals. Her chronic medical problems of heart failure with preserved ejection fraction and hypertension were managed with her home medications. DISPOSITION: Stable. DISCHARGE INSTRUCTIONS: 1. Location: Home. 2. Diet: Heart healthy. 3. Activity: As tolerated. 4. Followup with PCP Dr. Andrews in 7-10 days. Job ID: [id number] [facility]
[2020-06-29] MEDS ORDERED: Hydrochlorothiazide 25 MG TAB PO SCH (09:00)
[2020-06-29 12:57] LABS: SARS-CoV-2 MS2 Positive; SARS-CoV-2 N Gene Negative; SARS-CoV-2 S Gene Negative; SARS-CoV-2 by NAA Not Detected (NotDetected); SARS-CoV-2 orf1ab Negative
--- NOTE | 2020-07-04 16:04 | EKG ---
Test Reason : Blood Pressure : / mmHG Vent. Rate : 065 BPM Atrial Rate : 065 BPM P-R Int : 176 ms QRS Dur : 074 ms QT Int : 410 ms P-R-T Axes : 072 -10 050 degrees QTc Int : 426 ms Normal sinus rhythm Low voltage QRS Borderline ECG Confirmed by DIANNE JETER, ELLIOT ([id number]), magazine editor AB THOMPSON ([id number]) on 07/04/2020 4:04:03 PM Referred By: Confirmed By:ELLIOT DEAN MD
== END 2020-06-28 16:11 | disposition admitted as inpatient to this hospital (09) ==
LOC: ERS 20:03 → ERHOLD 22:22
PROVIDERS: ADMIT Student in an Organized Health Care Education/Training Program; ATTEND Student in an Organized Health Care Education/Training Program
DX: R07.89 Other chest pain (principal); R13.10 Dysphagia, unspecified; I11.0 Hypertensive heart disease with heart failure; I50.30 Unspecified diastolic (congestive) heart failure; K21.9 Gastro-esophageal reflux disease without esophagitis; E78.5 Hyperlipidemia, unspecified; Z86.73 Personal history of transient ischemic attack (TIA), and cerebral infarction without residual deficits; Z79.02 Long term (current) use of antithrombotics/antiplatelets; Z79.899 Other long term (current) drug therapy; Z88.5 Allergy status to narcotic agent; Z88.6 Allergy status to analgesic agent; Z20.828 Contact with and (suspected) exposure to other viral communicable diseases
CPT/HCPCS: 71045; 71275; 78452; 80053; 82550; 83690; 83880; 84484 ×3; 85025; 85379; 93005; 93017; 99285; A9500; U0003; 36415; 87635; J0153; J1940; Q9967

== ENCOUNTER 2021-01-28 15:30 | Outpatient (CLI) | payer MEDICARE, OTHER | END 2021-01-28 15:31 | disposition home or self-care (01) | LOC: BICMAMMO 15:30 | PROVIDERS: ATTEND Internal Medicine Hospice and Palliative Medicine | DX: Z12.31 Encounter for screening mammogram for malignant neoplasm of breast (principal) | CPT/HCPCS: 77063; 77067 ==

== ENCOUNTER 2021-09-22 09:51 | Emergency (ER) | payer MEDICARE, OTHER ==
[2021-09-22 10:13] LABS: #Eosinphils 0.1 thou/uL (0.0-0.7); #Lymphocytes 1.8 thou/uL (1.20-3.40); #Monocytes 0.5 thou/uL (0.11-0.59); #Neutrophils 5.7 thou/uL (1.40-6.50); %Basophils 0.5 % (0.0-1.0); %Eosinophils 1.8 % (0.0-10.0); %Lymphocytes 22.1 % (21.0-51.0); %Monocytes 6.1 % (0.0-10.0); %Neutrophils 69.5 % (42.0-75.0); Hemoglobin 12.8 g/dL (12.0-16.0); Mean Corpuscular HGB CONC 32.1 g/dL (32.0-36.0); Mean Corpuscular Hemoglobin 27.3 pg (27.0-31.0); Mean Corpuscular Volume 85.1 fL (78.0-98.0); Mean Platelet Volume 11.3 fL (7.4-10.4); Platelet Count 209 thou/uL (130-400); RBC Distribution Width 20.3 % (11.5-14.5); Red Blood Cell (RBC) Count 4.69 mill/uL (4.20-5.40); White Blood Cell (WBC) Count 8.2 thou/uL (4.8-10.8)
[2021-09-22 10:23] LABS: PTT 33.1 sec (22.9-36.1); Prothrombin Time 13.2 sec (12.0-14.7)
[2021-09-22 10:37] LABS: ALT (SGPT) 18 U/L (8-55); AST (SGOT) 20 U/L (5-34); Albumin 3.6 g/dL (3.4-4.8); Alkaline Phosphatase 111 U/L (40-110); Anion Gap 13 mmol/L (10-20); BUN (Urea Nitrogen) 15 mg/dL (9.8-20.1); Bilirubin, Total 0.7 mg/dL (0.2-1.2); Calc. Creatinine Clearance 0 mL/min (70-130); Calcium 9.1 mg/dL (7.8-10.44); Carbon Dioxide 26 mmol/L (23-31); Chloride 104 mmol/L (98-107); Globulin 3.7 g/dL (2.4-3.5); Glucose 113 mg/dL (80-115); Potassium 4.2 mmol/L (3.5-5.1); Protein, Total 7.3 g/dL (5.8-8.1); Sodium 139 mmol/L (136-145)
[2021-09-22] MEDS ORDERED: methylPREDNISolone Sod Succ/PF 125 MG/2 ML VIAL ONE (11:14)
[2021-09-22] MEDS ORDERED: Ketorolac Tromethamine 30 MG/ML VIAL ONE (11:14)
[2021-09-22] MEDS ORDERED: diphenhydrAMINE 50 MG/ML VIAL ONE (11:14)
[2021-09-22] MEDS ORDERED: Metoclopramide HCl 10 MG/2 ML VIAL ONE (11:14)
== END 2021-09-22 12:48 | disposition home or self-care (01) ==
LOC: ERS 09:51
DX: I10 Essential (primary) hypertension (principal); E78.00 Pure hypercholesterolemia, unspecified; K21.9 Gastro-esophageal reflux disease without esophagitis; Z86.73 Personal history of transient ischemic attack (TIA), and cerebral infarction without residual deficits; Z79.899 Other long term (current) drug therapy
CPT/HCPCS: 36415; 36416; 70450; 71045; 80053; 84484; 85025; 85610; 85730; 93005; 96365; 96375; J1200; J1885; J2765; J2930

== ENCOUNTER 2022-01-31 08:56 | Outpatient (CLI) | payer MEDICARE, OTHER | END 2022-01-31 08:57 | disposition home or self-care (01) | LOC: BICMAMMO 08:56 | PROVIDERS: ATTEND Internal Medicine Hospice and Palliative Medicine | DX: Z12.31 Encounter for screening mammogram for malignant neoplasm of breast (principal); Z80.3 Family history of malignant neoplasm of breast | CPT/HCPCS: 77063; 77067 ==

== ENCOUNTER 2022-12-19 19:00 | Outpatient (CLI) | payer OTHER | END 2022-12-19 19:01 | disposition home or self-care (01) | LOC: SLEEPLAB 19:00 | PROVIDERS: ATTEND Internal Medicine Hospice and Palliative Medicine | DX: G47.33 Obstructive sleep apnea (adult) (pediatric) (principal); R53.83 Other fatigue; E66.9 Obesity, unspecified; K21.9 Gastro-esophageal reflux disease without esophagitis; I10 Essential (primary) hypertension; Z68.41 Body mass index [BMI] 40.0-44.9, adult | CPT/HCPCS: 95811 ==

== ENCOUNTER 2023-04-19 08:34 | Outpatient (CLI) | payer OTHER | END 2023-04-19 08:35 | disposition home or self-care (01) | LOC: MRI 08:34 | PROVIDERS: ATTEND Internal Medicine Hospice and Palliative Medicine | DX: G45.9 Transient cerebral ischemic attack, unspecified (principal); R90.82 White matter disease, unspecified | CPT/HCPCS: 70551 ==

== ENCOUNTER 2023-05-10 09:26 | Outpatient (CLI) | payer OTHER | END 2023-05-10 09:27 | disposition home or self-care (01) | LOC: ULT 09:26 | PROVIDERS: ATTEND Internal Medicine Hospice and Palliative Medicine | DX: R29.898 Other symptoms and signs involving the musculoskeletal system (principal) | CPT/HCPCS: 93880 ==

== ENCOUNTER 2024-03-05 08:26 | Outpatient (CLI) | payer OTHER | END 2024-03-05 08:27 | disposition home or self-care (01) | LOC: BICMAMMO 08:26 | PROVIDERS: ATTEND Internal Medicine Hospice and Palliative Medicine | DX: Z12.31 Encounter for screening mammogram for malignant neoplasm of breast (principal); Z80.3 Family history of malignant neoplasm of breast | CPT/HCPCS: 77063; 77067 ==

== ENCOUNTER 2024-10-23 15:17 | Inpatient (IN) | payer MEDICARE, OTHER ==
[~2024-10-23 15:17] MED LIST changes: -Iopamidol-370 76% 500 ML 1 ML ONE; +Iopamidol-370 76% 500 ML MDV (1 ML CHARGE) ONE
[2024-10-23 16:21] LABS: #Basophils Less than 0.03 10x3/uL (0.0-0.2); %Basophils 0.2 % (0.0-1.0); %Eosinophils 0.3 % (0.0-10.0); %Lymphocytes 10.8 % (21.0-51.0); %Monocytes 2.5 % (0.0-10.0); %Neutrophils 85.6 % (42.0-75.0); Hematocrit 35.2 % (36.0-47.0); Mean Corpuscular HGB CONC 31.3 g/dL (32.0-36.0); Mean Corpuscular Hemoglobin 25.1 pg (27.0-31.0); Mean Corpuscular Volume 80.4 fL (78.0-98.0); Platelet Count 204 10x3/uL (130-400); RBC Distribution Width 27.1 % (11.5-14.5); Red Blood Cell (RBC) Count 4.38 mill/uL (4.20-5.40)
[2024-10-23 16:32] LABS: Anion Gap 13 mmol/L (10-20); BUN (Urea Nitrogen) 9 mg/dL (9.8-20.1); Calc. Creatinine Clearance 0 mL/min (70-130); Carbon Dioxide 25 mmol/L (23-31); Chloride 108 mmol/L (98-107); Potassium 3.8 mmol/L (3.5-5.1); Sodium 142 mmol/L (136-145)
[2024-10-23 16:33] LABS: ALT (SGPT) 14 U/L (Less than 34); AST (SGOT) 17 U/L (11-34); Albumin 3.1 g/dL (3.1-4.5); Alkaline Phosphatase 63 U/L (40-110); Bilirubin, Total 0.6 mg/dL (0.3-1.2); Calcium 9.1 mg/dL (7.8-10.44); Estimated GFR 66; Globulin 4.2 g/dL (2.4-3.5); Glucose 122 mg/dL (83-110); Protein, Total 7.3 g/dL (5.8-8.1)
[2024-10-23 16:38] LABS: Troponin I 0.013 ng/mL (< 0.028)
[2024-10-23 16:43] LABS: Anisocytosis SLIGHT = 6-15 cells HPF (0-5); Elliptocytes SLIGHT = 2-5 cells HPF (0-1); Platelet Adequacy Comment Platelets Normal; Polychromasia MARKED = >4 cells HPF (0-2); Tear Drops SLIGHT = 2-5 cells HPF (0-1)
[2024-10-23] MEDS ORDERED: Enoxaparin 100 MG (1 mL) SYRINGE ONE (18:10)
[2024-10-23] MEDS ORDERED: hydrALAZINE 20 MG/ML VIAL ONE (22:35)
[2024-10-23] MEDS ORDERED: Famotidine 20 MG TAB ONE (22:35)
[2024-10-23] MEDS: hydrALAZINE 20 MG/ML VIAL SLOW IVP SCH (22:51)
[2024-10-23] MEDS: Famotidine 20 MG TAB PO SCH (22:52)
[2024-10-24] MEDS ORDERED: Ibuprofen 200 MG TAB ONE (01:26)
[2024-10-24] MEDS: Ibuprofen 200 MG TAB PO PRN (01:33)
[2024-10-24 04:42] LABS: #Basophils Less than 0.03 10x3/uL (0.0-0.2); %Basophils 0.2 % (0.0-1.0); %Eosinophils 1.6 % (0.0-10.0); %Lymphocytes 24.2 % (21.0-51.0); %Monocytes 7.8 % (0.0-10.0); %Neutrophils 65.6 % (42.0-75.0); Hematocrit 33.1 % (36.0-47.0); Hemoglobin 10.5 g/dL (12.0-16.0); Mean Corpuscular HGB CONC 31.7 g/dL (32.0-36.0); Mean Corpuscular Hemoglobin 25.4 pg (27.0-31.0); Mean Corpuscular Volume 80.1 fL (78.0-98.0); Platelet Count 179 10x3/uL (130-400); RBC Distribution Width 27.3 % (11.5-14.5); Red Blood Cell (RBC) Count 4.13 mill/uL (4.20-5.40)
[2024-10-24 04:55] LABS: ALT (SGPT) 11 U/L (Less than 34); AST (SGOT) 14 U/L (11-34); Albumin 2.8 g/dL (3.1-4.5); Alkaline Phosphatase 56 U/L (40-110); Anion Gap 13 mmol/L (10-20); BUN (Urea Nitrogen) 10 mg/dL (9.8-20.1); Bilirubin, Total 0.6 mg/dL (0.3-1.2); Calc. Creatinine Clearance 108 mL/min (70-130); Calcium 8.9 mg/dL (7.8-10.44); Carbon Dioxide 22 mmol/L (23-31); Chloride 109 mmol/L (98-107); Estimated GFR 81; Globulin 3.8 g/dL (2.4-3.5); Glucose 96 mg/dL (83-110); Potassium 3.1 mmol/L (3.5-5.1); Protein, Total 6.6 g/dL (5.8-8.1); Sodium 141 mmol/L (136-145)
[2024-10-24] MEDS ORDERED: Potassium Chloride 20 MEQ TAB ONE (06:03)
[2024-10-24] MEDS: Potassium Chloride 20 MEQ TAB PO SCH (06:03)
[2024-10-24 07:02] LABS: Phosphorus 3.2 mg/dL (2.5-4.5)
[2024-10-24] MEDS ORDERED: Enoxaparin 100 MG (1 mL) SYRINGE ONE (09:37)
[2024-10-24] MEDS ORDERED: Metoprolol Tartrate 25 MG TAB ONE (09:37)
[2024-10-24] MEDS ORDERED: Pantoprazole 40 MG DR.TAB ONE (09:37)
[2024-10-24] MEDS: Chlorthalidone 25 MG TAB PO SCH (10:43)
[2024-10-24] MEDS: Metoprolol Tartrate 25 MG TAB PO SCH (10:44)
[2024-10-24] MEDS: Pantoprazole 40 MG DR.TAB PO SCH (10:44)
[2024-10-24] MEDS: Rosuvastatin 10 MG TAB PO SCH (10:44)
[2024-10-24] MEDS: Enoxaparin 100 MG (1 mL) SYRINGE SC SCH (10:45)
[2024-10-24 15:05] VITALS: BMI 40.1
[2024-10-25 04:50] LABS: #Basophils Less than 0.03 10x3/uL (0.0-0.2); %Basophils 0.2 % (0.0-1.0); %Eosinophils 2.4 % (0.0-10.0); %Lymphocytes 25.2 % (21.0-51.0); %Monocytes 8.8 % (0.0-10.0); %Neutrophils 62.8 % (42.0-75.0); Hematocrit 34.1 % (36.0-47.0); Hemoglobin 10.6 g/dL (12.0-16.0); Mean Corpuscular HGB CONC 31.1 g/dL (32.0-36.0); Mean Corpuscular Hemoglobin 25.5 pg (27.0-31.0); Mean Corpuscular Volume 82.2 fL (78.0-98.0); Platelet Count 201 10x3/uL (130-400); RBC Distribution Width 27.9 % (11.5-14.5); Red Blood Cell (RBC) Count 4.15 mill/uL (4.20-5.40)
[2024-10-25 05:03] LABS: ALT (SGPT) 11 U/L (Less than 34); AST (SGOT) 19 U/L (11-34); Albumin 2.9 g/dL (3.1-4.5); Alkaline Phosphatase 58 U/L (40-110); Anion Gap 13 mmol/L (10-20); BUN (Urea Nitrogen) 9 mg/dL (9.8-20.1); Bilirubin, Total 0.6 mg/dL (0.3-1.2); Calc. Creatinine Clearance 83 mL/min (70-130); Calcium 8.9 mg/dL (7.8-10.44); Carbon Dioxide 26 mmol/L (23-31); Chloride 106 mmol/L (98-107); Estimated GFR 58; Globulin 3.7 g/dL (2.4-3.5); Glucose 116 mg/dL (83-110); Potassium 3.7 mmol/L (3.5-5.1); Protein, Total 6.6 g/dL (5.8-8.1); Sodium 141 mmol/L (136-145)
[2024-10-25] MEDS ORDERED: Enoxaparin 120 MG/0.8 ML SYRINGE SC SCH ×2 (09:00→21:00)
[2024-10-25] MEDS: Enoxaparin 120 MG/0.8 ML SYRINGE SC SCH (09:10)
[2024-10-25 11:58] VITALS: BP 121/62; TEMP 98.1
[2024-10-26] MEDS ORDERED: predniSONE 20 MG TAB PO SCH ×2 (08:00)
== END 2024-10-25 17:35 | disposition home or self-care (01) | DRG 176 ==
LOC: ERS 15:17 → ERHOLD 18:20 → OBS 18:33
PROVIDERS: ADMIT Family Medicine; ATTEND Family Medicine
DX: I26.94 Multiple subsegmental thrombotic pulmonary emboli without acute cor pulmonale (principal); J90 Pleural effusion, not elsewhere classified; I10 Essential (primary) hypertension; K21.9 Gastro-esophageal reflux disease without esophagitis; Z96.652 Presence of left artificial knee joint; E78.00 Pure hypercholesterolemia, unspecified; E87.6 Hypokalemia; M35.3 Polymyalgia rheumatica; Z86.73 Personal history of transient ischemic attack (TIA), and cerebral infarction without residual deficits; Z85.42 Personal history of malignant neoplasm of other parts of uterus; Z90.710 Acquired absence of both cervix and uterus; Z88.5 Allergy status to narcotic agent; Z88.8 Allergy status to other drugs, medicaments and biological substances; Z79.899 Other long term (current) drug therapy
CPT/HCPCS: 36415; 71045; 71275; 80053; 83735; 83880; 84100; 84484; 85025; 86304; 93005; 93970; 96372; J0360; J1650; Q9967

== ENCOUNTER 2025-02-26 10:19 | Outpatient (CLI) | payer MEDICARE, MEDICAID ==
[2025-02-26 12:13] LABS: #Basophils 0.05 10x3/uL (0.0-0.2); #Eosinophils 0.15 10x3/uL (0.0-0.7); #Monocytes 0.71 10x3/uL (0.11-0.59); #Neutrophils 7.43 10x3/uL (1.40-6.50); %Basophils 0.5 % (0.0-1.0); %Eosinophils 1.4 % (0.0-10.0); %Lymphocytes 20.1 % (21.0-51.0); %Monocytes 6.8 % (0.0-10.0); %Neutrophils 70.7 % (42.0-75.0); Hematocrit 37.8 % (36.0-47.0); Hemoglobin 11.4 g/dL (12.0-16.0); Mean Corpuscular Hemoglobin 24.1 pg (27.0-31.0); Mean Corpuscular Volume 79.7 fL (78.0-98.0); Platelet Count 261 10x3/uL (130-400); Red Blood Cell (RBC) Count 4.74 mill/uL (4.20-5.40); White Blood Cell (WBC) Count 10.50 10x3/uL (4.8-10.8)
[2025-02-26 12:45] LABS: ALT (SGPT) 7 U/L (Less than 34); AST (SGOT) 15 U/L (11-34); Albumin 3.6 g/dL (3.1-4.5); Alkaline Phosphatase 88 U/L (40-110); Anion Gap 11 mmol/L (10-20); BUN (Urea Nitrogen) 10 mg/dL (9.8-20.1); Bilirubin, Total 0.4 mg/dL (0.3-1.2); Calc. Creatinine Clearance 0 mL/min (70-130); Calcium 9.1 mg/dL (7.8-10.44); Carbon Dioxide 27 mmol/L (23-31); Chloride 109 mmol/L (98-107); Globulin 3.8 g/dL (2.4-3.5); Glucose 97 mg/dL (83-110); Potassium 3.8 mmol/L (3.5-5.1); Sodium 143 mmol/L (136-145)
[2025-02-26 13:18] LABS: Anisocytosis MODERATE=16-30 cells HPF (0-5); Macrocytosis SLIGHT = 6-15 cells HPF (0-5); Microcytosis SLIGHT = 6-15 cells HPF (0-5); Platelet Adequacy Comment Platelets Normal; Polychromasia MODERATE = 3-4 cells HPF (0-2)
== END 2025-02-26 10:20 | disposition home or self-care (01) ==
LOC: LABBT 10:19
PROVIDERS: ATTEND Surgery
DX: Z01.818 Encounter for other preprocedural examination (principal); R51.9 Headache, unspecified
CPT/HCPCS: 80053; 85025; 93005; 93010